=== PATIENT | female | born 1970 | race Caucasian/White ===

== ENCOUNTER 2019-07-01 07:56 | Emergency (ER) | payer BC ==
[~2019-07-01] VITALS: Ht 152.4 cm; Wt 59.0 kg
[~2019-07-01 07:56] MED LIST: DAYPRO600 M1 PO; MOTRIN800 MG PO; ROBAXIN750 MG PO
[2019-07-01] MEDS ORDERED: Motrin,Rufen800 MG PO (09:07)
== END 2019-07-01 09:14 | disposition home or self-care (01) ==
LOC: ED 07:56
DX: S63.502A Unspecified sprain of left wrist, initial encounter (principal); S63.501A Unspecified sprain of right wrist, initial encounter; X50.0XXA Overexertion from strenuous movement or load, initial encounter; Y93.89 Activity, other specified; Y92.89 Other specified places as the place of occurrence of the external cause; Y99.8 Other external cause status

== ENCOUNTER 2021-06-03 15:38 | Emergency (ER) | payer OTHER ==
[~2021-06-03] VITALS: Ht 152.4 cm; Wt 64.9 kg
[~2021-06-03 15:38] MED LIST changes: +Motrin,Rufen800 MG PO
[2021-06-03] MEDS ORDERED: Motrin,Rufen800 MG PO (18:38)
== END 2021-06-03 18:56 | disposition home or self-care (01) ==
LOC: ED 15:38
DX: S20.212A Contusion of left front wall of thorax, initial encounter (principal); R51.9 Headache, unspecified; Z79.899 Other long term (current) drug therapy; Z98.890 Other specified postprocedural states; V44.5XXA Car driver injured in collision with heavy transport vehicle or bus in traffic accident, initial encounter; Y93.I9 Activity, other involving external motion; Y92.488 Other paved roadways as the place of occurrence of the external cause; Y99.8 Other external cause status

== ENCOUNTER → 2023-12-23 | Outpatient (CLI) | payer BC, OTHER | END | disposition home or self-care (01) | LOC: US 12-06 08:30 | PROVIDERS: ATTEND Physician Assistant | DX: Z12.11 Encounter for screening for malignant neoplasm of colon (principal); Z00.00 Encounter for general adult medical examination without abnormal findings; R79.89 Other specified abnormal findings of blood chemistry; R14.0 Abdominal distension (gaseous); K76.0 Fatty (change of) liver, not elsewhere classified ==

== ENCOUNTER → 2024-03-09 | Outpatient (CLI) | payer BC | END | disposition home or self-care (01) | LOC: RAD 15:34 | PROVIDERS: ATTEND Physician Assistant | DX: M25.842 Other specified joint disorders, left hand (principal); M79.642 Pain in left hand ==

== ENCOUNTER 2025-01-26 17:35 | Emergency (ER) | payer OTHER, BC ==
[~2025-01-26] VITALS: Ht 147.3 cm; Wt 72.6 kg
[2025-01-26] MEDS ORDERED: Acetaminophen/Hydrocodone 5 MG/325 MG TABLET PO ONE (18:10)
[2025-01-26] MEDS ORDERED: CYCLOBENZAPRINE5 M3 PO (20:19)
[2025-01-26] MEDS ORDERED: Cyclobenzaprine Hydrochlorid 10 MG TAB PO ONE (20:20)
== END 2025-01-26 20:25 | disposition home or self-care (01) ==
LOC: ED 17:35
DX: S39.012A Strain of muscle, fascia and tendon of lower back, initial encounter (principal); S50.02XA Contusion of left elbow, initial encounter; S80.02XA Contusion of left knee, initial encounter; Z79.899 Other long term (current) drug therapy; Z98.890 Other specified postprocedural states; V89.2XXA Person injured in unspecified motor-vehicle accident, traffic, initial encounter; Y93.I9 Activity, other involving external motion; Y92.488 Other paved roadways as the place of occurrence of the external cause; Y99.8 Other external cause status